=== PATIENT | male | born 1950 | race Native Hawaiian/Other Pacific Islander ===

== ENCOUNTER 2016-05-21 07:18 | Outpatient (CLI) | payer OTHER ==
[~2016-05-21 07:18] MED LIST: ASPIRIN ADULT L81 MG OR; COZAAR100 MG PO; GLIP5TAB76 PO; METFORMIN ER1000 MG PO; SIMV20TA2 PO
[2016-05-21 08:41] LABS: PLATELET COUNT 211 K/uL (142-355)
[2016-05-21 08:58] LABS: POTASSIUM 4.1 mmol/L (3.6-5.2)
== END 2016-05-21 19:43 | disposition home or self-care (01) ==
LOC: LABW 07:18
PROVIDERS: Internal Medicine
DX: E11.9 Type 2 diabetes mellitus without complications (principal)
CPT/HCPCS: 36415; 80053; 80061; 81000; 82043; 82570; 83036; 84153; 84439; 84443; 85027

== ENCOUNTER 2016-07-10 08:02 | Outpatient (CLI) | payer OTHER | END 2016-07-10 10:00 | disposition home or self-care (01) | LOC: CT 08:02 | DX: R31.0 Gross hematuria (principal) | CPT/HCPCS: 36415; 82565; 84520; Q9963 ==

== ENCOUNTER 2016-07-27 07:40 | Outpatient (CLI) | payer OTHER ==
[2016-07-27 08:13] LABS: PLATELET COUNT 321 K/uL (142-355)
[2016-07-27 08:16] LABS: POTASSIUM 4.3 mmol/L (3.6-5.2)
== END 2016-07-27 19:23 | disposition home or self-care (01) ==
LOC: LABW 07:40
PROVIDERS: Internal Medicine
DX: E11.9 Type 2 diabetes mellitus without complications (principal)
CPT/HCPCS: 36415; 80048; 81000; 85027

== ENCOUNTER 2016-09-15 08:02 | Outpatient (CLI) | payer OTHER | END 2016-09-15 09:05 | disposition home or self-care (01) | LOC: LABW 08:02 | PROVIDERS: Internal Medicine Gastroenterology | DX: R53.83 Other fatigue (principal) | CPT/HCPCS: 36415; 80048; 81000; 84443 ==

== ENCOUNTER 2016-10-09 06:16 | Outpatient (CLI) | payer OTHER ==
[2016-10-09 06:46] LABS: PLATELET COUNT 207 K/uL (142-355)
== END 2016-10-09 08:00 | disposition home or self-care (01) ==
LOC: LABW 06:16
PROVIDERS: Internal Medicine Gastroenterology
DX: K59.09 Other constipation (principal)
CPT/HCPCS: 36416; 85027

== ENCOUNTER 2016-12-16 07:32 | Outpatient (CLI) | payer OTHER ==
[2016-12-16 08:00] LABS: PLATELET COUNT 190 K/uL (142-355)
[2016-12-16 08:28] LABS: POTASSIUM 4.1 mmol/L (3.6-5.2)
== END 2016-12-16 08:35 | disposition home or self-care (01) ==
LOC: LABW 07:32
PROVIDERS: Internal Medicine
DX: E11.9 Type 2 diabetes mellitus without complications (principal); Z79.899 Other long term (current) drug therapy; Z51.81 Encounter for therapeutic drug level monitoring
CPT/HCPCS: 36415; 80053; 80061; 81000; 83036; 84439; 84443; 85027

== ENCOUNTER 2017-08-04 08:42 | Outpatient (CLI) | payer OTHER ==
[2017-08-04 09:12] LABS: PLATELET COUNT 203 K/uL (142-355)
[2017-08-04 09:56] LABS: POTASSIUM 4.3 mmol/L (3.6-5.2)
== END 2017-08-04 19:24 | disposition home or self-care (01) ==
LOC: LABW 08:42
PROVIDERS: Internal Medicine
DX: E11.42 Type 2 diabetes mellitus with diabetic polyneuropathy (principal)
CPT/HCPCS: 36415; 80053; 80061; 81000; 82043; 82570; 83036; 84439; 84443; 85027

== ENCOUNTER 2020-07-23 09:56 | Emergency (ER) | payer OTHER ==
[~2020-07-23] VITALS: Ht 182.9 cm; Wt 705.3 kg
[2020-07-23 09:58] VITALS: TEMP 99.3
[2020-07-23 10:34] LABS: PLATELET COUNT 96 K/uL (142-355)
[2020-07-23 10:40] LABS: POTASSIUM 4.1 mmol/L (3.6-5.2)
[2020-07-23 12:57] VITALS: BP 108/65
== END 2020-07-23 14:15 | disposition home or self-care (01) ==
LOC: ED 09:56
PROVIDERS: Family Medicine
DX: E86.0 Dehydration (principal); K59.09 Other constipation; E87.1 Hypo-osmolality and hyponatremia; R53.83 Other fatigue
CPT/HCPCS: 80053; 81000; 82150; 83690; 85007; 85027; 96360; 96375; 99284; J1885; J3490